=== PATIENT | female | born 1955 | race African-American/Black ===

== ENCOUNTER 2021-05-20 11:47 | Day surgery (SDC) | payer OTHER ==
[2021-05-20] MEDS ORDERED: Lactated Ringers 1,000 ML IV ONE ×2 (12:13→14:31)
[2021-05-20] MEDS ORDERED: CLINDAMYCIN-D5W 900 MG/50 ML*** 900 MG/50 ML BAG IV STA (12:16)
[2021-05-20] MEDS ORDERED: Lactated Ringers 1,000 ML IV SCH (12:30)
[2021-05-20] MEDS ORDERED: XYLOCAINE 1% HCL 20 ML MDV ONE (14:31)
[2021-05-20] MEDS ORDERED: BUPIVACAINE 0.5% VIAL IJ ONE (14:31)
[2021-05-20] MEDS ORDERED: DIPRIVAN 200 MG/20 ML IV ONE (15:15)
[2021-05-20] MEDS ORDERED: SUBLIMAZE 100 MCG/2 ML ONE (15:15)
[2021-05-20] MEDS ORDERED: Versed 2 MG/2 ML Injection ONE (15:15)
[2021-05-20] MEDS ORDERED: Zemuron 100 MG/10 ML ONE (15:16)
[2021-05-20] MEDS ORDERED: Xylocaine-Mpf 2% 5 Ml Vial ONE (15:18)
[2021-05-20] MEDS ORDERED: Zofran 4 MG/2 ML VIAL ONE (15:22)
[2021-05-20] MEDS ORDERED: Decadron 4 MG INJ ONE (15:22)
[2021-05-20] MEDS ORDERED: BRIDION 200MG/2ML IV ONE (15:22)
[2021-05-20] MEDS ORDERED: Ephedrine Sulfate 50 MG/ML ONE (16:13)
--- NOTE | 2021-05-21 08:37 | XRAY ---
Indication: 1st metatarsal arthrodesis. Intraoperative fluoroscopy provided for 1 minute 11 seconds. 17 digital spot images submitted for interpretation ultimately demonstrates 1st MTP fusion with intact plate/screws. Correlate with intraoperative findings/report.
--- NOTE | 2021-05-21 09:03 | OP ---
SURGERY DATE/TIME: 05/20/2021 1549 PREOPERATIVE DIAGNOSES: 1) Pain right foot. 2) Osteoarthritis first metatarsophalangeal joint. 3) Flat foot deformity. 4) Hallux abductovalgus deformity right foot. 5) Pain with ambulation. POSTOPERATIVE DIAGNOSES: 1) Pain right foot. 2) Osteoarthritis first metatarsophalangeal joint. 3) Flat foot deformity. 4) Hallux abductovalgus deformity right foot. 5) Pain with ambulation. PROCEDURE: Arthrodesis first metatarsophalangeal joint right foot. SURGEON: Denny Ybarra DPM. COFFEE BREWER: None. ANESTHESIA: General plus pre and postoperative local injection. HEMOSTASIS: Ankle tourniquet set 250 mm of Mercury for 66 total minutes. ESTIMATED BLOOD LOSS: Less than 20 cc. MATERIALS: Uziel 3.5 first metatarsophalangeal locking plate along with a 3.5 mm variable compression screw as interfragmentary from [employer], 4-0 Monocryl, 3-0 Nylon. INJECTABLES: 30 cc total of a 1:1 mixture of 1% lidocaine plain and 0.5% bupivacaine plain injected in a Hardy block-type 20 cc preoperatively and 10 cc postoperatively. INDICATION FOR SURGERY: Cornelia is a very pleasant 65-year-old female patient who was seen in my office for pain to the right foot. She was concerned of a bunion to the right lower extremity that has progressively gotten more and more painful as time has gone on. The patient presented to my office indicating that the pain had been present for a number of years and had limited the motion of her first metatarsophalangeal joint and pain with extended periods of weight bearing. On x-ray demonstrated the significant amount of subchondral sclerosis to the right foot at the level of the first metatarsophalangeal joint as well as a significant amount of dorsal spurring at the joint surface with some subluxation of the joint itself. Because of this options were discussed and the patient decided to proceed with removal of the bunion deformity as well as a first metatarsophalangeal joint arthrodesis. The patient understands all risks, benefits and complications of the procedure and voiced her understanding including but not limited to delayed wound healing, nonwound healing, delayed bone healing and nonbone healing, possibility of nonunion is a real one and the patient understands that this is a possibility proceeding with surgical intervention. Along with the use of hardware, there may be painful, irritating hardware in the future that may need to come out or possible need for surgical intervention or revision in the future. She voiced her understanding of all this and wishes to proceed. Consent is signed, dated and in the patient's paper chart and it is with that we proceed. DESCRIPTION OF PROCEDURE AND FINDINGS: The patient was brought into the OR and placed on the OR table in the supine position. At this time adequate general anesthesia was administered to the patient. The right lower extremity was prepped and draped in the typical sterile fashion. At this time the right lower extremity was lowered onto the surgical field. Attention was directed to the dorsal aspect of the right first metatarsophalangeal joint where a 15 blade was utilized to make an incision at the dorsal aspect of this joint just medially to the extensor hallucis longus tendon. This incision was carried down using a combination of blunt and sharp dissection being careful not to damage any neurovascular structures along the way. At this time attention was directed to the joint surface where the capsule was resected utilizing a J-stroke on the medial and lateral aspects of the metatarsophalangeal joint freeing up the capsular attachment. At this time a McGlamry introduced from dorsal to plantar relieving any adhesions at the plantar aspect of these joints and the first metatarsophalangeal joint cartilaginous surface was easily visible. At this time assessment of the cartilage was made for a significant amount of dorsal prominence and central area of eburnation and denuding of the cartilage at the central aspect of the first metatarsal head. At this time a rongeur was utilized to resect the dorsal flap off of the top of the metatarsal and the medial prominence of the right foot of the right first metatarsal. Following this conical reamers were utilized to denude the remaining cartilage off of the joint surface from both the head of the metatarsal as well as the base of the proximal phalanx this was flushed removing all components of cartilage to this area. Following this a 2 mm drill was utilized to perforate the surfaces of the joint in order to provide for vascular channels. A curette was utilized to break through the subchondral plate to expose more of the cancellous bone to improve chances of union and then an osteotome was utilized to fish scale the surfaces of the joint to increase the surface area. At this time provisional fixation was utilized to hold the toe in the proper alignment. The 7 degree Uziel first metatarsophalangeal joint plate was placed on the dorsal aspect and secured utilizing temporary fixation to assess position. At this time the distal aspect of the plate was secured into place. At this time interfragmentary compression was thrown across the first metatarsophalangeal joint from a distal medial to proximal-lateral direction engaging the screw into the lateral cortex but not burying the head. At this time an eccentric compression slot in the proximal first metatarsal plate was filled utilizing a nonlocking screw and with bicortical fixation gaining compression through the plate and then alternating compression through the screw was performed until there was adequate compression through the first metatarsophalangeal joint. At this time the remaining locking screws were introduced into the plate. Final pictures were taken with the fluoroscopy. Copious amounts of sterile saline were utilized to flush the surgical site at this time. The tourniquet was then let down and the closure was maintained of the capsule utilizing 4-0 Monocryl. The subcutaneous skin was then coapted using 4-0 Monocryl once again and the skin was coapted in an everted horizontal mattress-type fashion utilizing 3-0 Nylon. At this time a dressing consisting of Betadine, Adaptic, 4x4, Kerlix and JOSE ANGEL was applied to the right lower extremity. The patient was fitted for a postoperative forefoot offloading shoe to weightbearing over the course of the next three to four weeks. The patient was then reversed from anesthesia and returned to the postoperative anesthesia care unit with vital signs stable and vascular status intact. The patient handled the procedure as well as the anesthesia without significant complication and postoperative orders as indicated in the patient's outpatient chart.
--- NOTE | 2021-05-21 09:49 | XRAY ---
1 minute and 11 seconds fluoroscopy time in surgery for arthrodesis of the 1st metatarsal of the right foot.
== END 2021-05-20 18:17 ==
LOC: SDC 11:47
PROVIDERS: ATTEND Podiatrist Foot & Ankle Surgery
DX: M20.11 Hallux valgus (acquired), right foot (principal); M19.071 Primary osteoarthritis, right ankle and foot; M79.671 Pain in right foot; M21.41 Flat foot [pes planus] (acquired), right foot; M21.611 Bunion of right foot; R26.2 Difficulty in walking, not elsewhere classified; E11.9 Type 2 diabetes mellitus without complications
CPT/HCPCS: 28750; 73620; 76000; 82947; J1100; J2250; J2405; J2704; J3010